=== PATIENT | male | born 1975 | race African-American/Black ===

== ENCOUNTER 2020-04-29 18:06 | Inpatient (IN) | payer OTHER ==
[~2020-04-29] VITALS: Ht 165.1 cm; Wt 75.7 kg
[2020-04-29] MEDS ORDERED: ACETAMINOPHEN 325MG TABLET PO STA (20:14)
[2020-04-29] MEDS ORDERED: SODIUM CHLORIDE 0.9% 1,000 ML IV ONE (20:15)
[2020-04-29 20:56] LABS: BASOPHILS % 0.4 % (0.0-2.0); EOSINOPHILS % 0.4 % (0.0-5.0); HEMATOCRIT. 41.9 % (42.0-52.0); HEMOGLOBIN. 14.6 g/dL (14.0-18.0); MEAN CORPUSCULAR HEMOGLOBIN 31.4 pg (28.0-32.0); MEAN CORPUSCULAR VOLUME 90.2 fL (80.0-94.0); MONOCYTES % 12.3 % (2.0-8.0); NEUTROPHILS % 70.9 % (40.0-76.0); PLATELET 328 x1000/uL (130-400); RED BLOOD CELL COUNT 4.64 mill/uL (4.7-6.1); RED CELL DISTRIBUTION WIDTH 14.4 % (11.6-14.6)
[2020-04-29 20:59] LABS: CHLORIDE 92 mEq/L (98-107)
[2020-04-29 21:47] LABS: CLARITY URINE CLEAR (CLEAR); COLOR URINE YELLOW (YELLOW); KETONES URINE 1+ (NEGATIVE); LEUKOCYTE ESTERASE URINE NEGATIVE (NEGATIVE); NITRITE URINE NEGATIVE (NEGATIVE); OCCULT BLOOD URINE NEGATIVE (NEGATIVE); PH URINE 5.5 (4.5-8.0); PROTEIN URINE NEGATIVE (NEGATIVE); SPECIFIC GRAVITY URINE 1.017 (1.005-1.030); UROBILINOGEN URINE 0.2 E.U./dL (0.2-1.0)
[2020-04-29] MEDS ORDERED: DEXAMETHASONE 10 MG/ML VIAL IV ONE (23:15)
[2020-04-30] VITALS (14 sets, daily range): BP systolic 141–176; BP diastolic 74–109
[2020-04-30] MEDS ORDERED: ATOR40TA70 PO (01:33)
[2020-04-30] MEDS ORDERED: ASPI-1497 PO (01:33)
[2020-04-30] MEDS ORDERED: LISI40TA4 MT (01:33)
[2020-04-30] MEDS ORDERED: CLOP75TA33 PO (01:33)
[2020-04-30] MEDS ORDERED: [UNRECOGNIZED DRUG - CODE] PO (01:33)
[2020-04-30] MEDS ORDERED: HYDR100T26 PO (01:33)
[2020-04-30] MEDS ORDERED: AMLO10TA80 MT (01:33)
[2020-04-30] MEDS ORDERED: METO25TA6 PO (01:33)
[2020-04-30] MEDS ORDERED: ONDANSETRON HCL 4MG/2ML INJ IV PRN (04:45)
[2020-04-30] MEDS ORDERED: ACETAMINOPHEN 325MG TABLET PO PRN ×2 (04:45→09:30)
[2020-04-30] MEDS: CLONIDINE 0.1MG TABLET PO SCH ×3 (05:30→21:00)
[2020-04-30] MEDS: DEXT 5%/0.9% NACL 1,000 ML IV SCH ×2 (05:35→17:53)
[2020-04-30] MEDS ORDERED: POTASSIUM CHLORIDE INJ 30 MEQ in DEXT 5%/0.9% NACL 1,000 ML IV SCH (06:00)
[2020-04-30] MEDS: AMLODIPINE 10MG TABLET PO SCH (08:31)
[2020-04-30] MEDS: CLOPIDOGREL 75MG TABLET PO SCH (09:30)
[2020-04-30] MEDS ORDERED: TRAMADOL 50MG TABLET PO PRN (09:30)
[2020-04-30] MEDS ORDERED: MAGNESIUM/ALUMINUM HYDROXIDE/SIMETHICONE 30ML UDC PO PRN (09:30)
[2020-04-30] MEDS ORDERED: NA PHOS,M-B/NA PHOS,DI-BA ENEMA 118ML PR PRN (09:30)
[2020-04-30] MEDS ORDERED: POTASSIUM CHLORIDE 20MEQ/PACKET PO NR (09:30)
[2020-04-30] MEDS ORDERED: LORAZEPAM 2MG/ML CPJ IV PRN (09:30)
[2020-04-30] MEDS ORDERED: IPRATROPIUM/ALBUTEROL 0.5-3(2.5)MG/3ML NEB NEB PRN (09:30)
[2020-04-30] MEDS ORDERED: NITROGLYCERIN 0.4MG TABLET SL SL PRN (09:30)
[2020-04-30] MEDS ORDERED: ZOLPIDEM TARTRATE 5MG TABLET PO PRN (09:30)
[2020-04-30] MEDS ORDERED: DOCUSATE SODIUM 100MG CAPSULE PO PRN (09:30)
[2020-04-30] MEDS: DEXAMETHASONE 4MG/ML 1ML VIAL IV SCH ×2 (11:11→17:09)
[2020-04-30] MEDS: LISINOPRIL 40MG TABLET PO SCH (11:23)
[2020-04-30 12:05] LABS: HEMATOCRIT. 43.3 % (42.0-52.0); MEAN CORPUSCULAR HEMOGLOBIN 31.2 pg (28.0-32.0); MEAN CORPUSCULAR VOLUME 90.3 fL (80.0-94.0); MEAN PLATELET VOLUME 7.2 fl (7.4-10.4); PLATELET 334 x1000/uL (130-400); RED BLOOD CELL COUNT 4.79 mill/uL (4.7-6.1); RED CELL DISTRIBUTION WIDTH 14.3 % (11.6-14.6)
[2020-04-30 12:35] LABS: CHLORIDE 102 mEq/L (98-107)
[2020-04-30] MEDS: ENOXAPARIN 40MG/0.4ML SYR SUBCUT SCH (13:49)
[2020-04-30] MEDS: HYDRALAZINE HCL 50MG TABLET PO SCH ×2 (13:50→21:00)
[2020-04-30] MEDS: FAMOTIDINE 20MG TABLET PO SCH (20:59)
[2020-04-30 21:00] LABS: *AMPHETAMINES SCREEN URINE NEGATIVE (NEGATIVE); *BARBITURATES SCREEN URINE NEGATIVE (NEGATIVE)
[2020-04-30 21:01] LABS: *BENZODIAZEPINES SCREEN URINE NEGATIVE (NEGATIVE); *COCAINE SCREEN URINE NEGATIVE (NEGATIVE); CANNABINOID URINE SCREEN PRESUMTIVE POSITIVE (NEGATIVE); METHADONE URINE SCREEN NEGATIVE (NEGATIVE); OPIATES URINE SCREEN NEGATIVE (NEGATIVE); PHENCYCLIDINE URINE SCREEN NEGATIVE (NEGATIVE)
[2020-04-30 22:57] LABS: PLATELET ESTIMATE NORMAL
[2020-05-01] VITALS (13 sets, daily range): BP systolic 132–177; BP diastolic 89–126
[2020-05-01] MEDS: DEXAMETHASONE 4MG/ML 1ML VIAL IV SCH ×4 (00:59→18:00)
[2020-05-01] MEDS: CLONIDINE 0.1MG TABLET PO SCH ×3 (06:12→22:20)
[2020-05-01] MEDS: HYDRALAZINE HCL 50MG TABLET PO SCH ×3 (06:12→21:30)
[2020-05-01 06:43] LABS: HEMATOCRIT. 41.8 % (42.0-52.0); HEMOGLOBIN. 14.4 g/dL (14.0-18.0); MEAN CORPUSCULAR HEMOGLOBIN 31.2 pg (28.0-32.0); MEAN CORPUSCULAR VOLUME 90.6 fL (80.0-94.0); MEAN PLATELET VOLUME 7.4 fl (7.4-10.4); PLATELET 310 x1000/uL (130-400); RED BLOOD CELL COUNT 4.62 mill/uL (4.7-6.1); RED CELL DISTRIBUTION WIDTH 14.4 % (11.6-14.6)
[2020-05-01 06:48] LABS: CHLORIDE 103 mEq/L (98-107)
[2020-05-01 07:03] LABS: LDL CHOLESTEROL 147 mg/dL (5-100)
[2020-05-01 07:05] LABS: HDL CHOLESTEROL 56 mg/dL (40-59)
[2020-05-01 07:27] LABS: PHOSPHORUS 2.8 mg/dL (2.5-4.9)
[2020-05-01] MEDS: CLOPIDOGREL 75MG TABLET PO SCH (09:00)
[2020-05-01] MEDS: LISINOPRIL 40MG TABLET PO SCH (09:25)
[2020-05-01] MEDS: AMLODIPINE 10MG TABLET PO SCH (09:26)
[2020-05-01] MEDS: DEXT 5%/0.9% NACL 1,000 ML IV SCH (09:26)
[2020-05-01] MEDS: FAMOTIDINE 20MG TABLET PO SCH ×2 (09:26→21:30)
[2020-05-01] MEDS: ENOXAPARIN 40MG/0.4ML SYR SUBCUT SCH (10:22)
[2020-05-01 12:31] LABS: PLATELET ESTIMATE NORMAL
[2020-05-02] VITALS (8 sets, daily range): BP systolic 131–165; BP diastolic 84–107
[2020-05-02] MEDS: HYDRALAZINE HCL 50MG TABLET PO SCH (05:23)
[2020-05-02] MEDS: CLONIDINE 0.1MG TABLET PO SCH (05:23)
[2020-05-02] MEDS: DEXAMETHASONE 4MG/ML 1ML VIAL IV SCH ×3 (05:24→11:48)
[2020-05-02] MEDS: LISINOPRIL 40MG TABLET PO SCH (08:44)
[2020-05-02] MEDS: CLOPIDOGREL 75MG TABLET PO SCH (08:45)
[2020-05-02] MEDS: AMLODIPINE 10MG TABLET PO SCH (08:45)
[2020-05-02] MEDS: FAMOTIDINE 20MG TABLET PO SCH (08:45)
[2020-05-02] MEDS: ENOXAPARIN 40MG/0.4ML SYR SUBCUT SCH (09:44)
== END 2020-05-02 13:10 | disposition short-term general hospital (02) | DRG 64 ==
LOC: ER 18:06 → 5EST 23:17 → ENRESERV 23:25
PROVIDERS: ADMIT Internal Medicine; ATTEND Internal Medicine
DX: I63.9 Cerebral infarction, unspecified (principal); G93.6 Cerebral edema; E87.1 Hypo-osmolality and hyponatremia; I10 Essential (primary) hypertension; E87.6 Hypokalemia; E78.00 Pure hypercholesterolemia, unspecified; Z20.828 Contact with and (suspected) exposure to other viral communicable diseases; Z79.02 Long term (current) use of antithrombotics/antiplatelets; Z79.899 Other long term (current) drug therapy; Z86.73 Personal history of transient ischemic attack (TIA), and cerebral infarction without residual deficits; Z79.82 Long term (current) use of aspirin
CPT/HCPCS: 36415; 80048; 80053; 80061; 80305; 81003; 83036; 83735; 84100; 85025; 87426; 93005; 93970; 97162; 97166; 99291; J1100; J1650; J3480; J7030; J7042